=== PATIENT | male | born 1955 | race Hispanic/Latino ===

== ENCOUNTER 2018-06-26 13:15 | Outpatient (CLI) | payer BC, MEDICARE ==
--- NOTE | 2018-06-26 15:46 | HP ---
DATE OF SERVICE: 06/26/2018 HISTORY OF PRESENT ILLNESS: Mr. Nasir Liriano is a very pleasant 62-year-old gentleman who [facility] for evaluation of a wound of the left knee, which the patient states developed after undergoing left below the knee amputation in 07/2017. The patient states that for the wound of his left knee, he has received dressing changes with the assistance of Home Health. The patient states h e has received a trial of Santyl and subsequently a trial of Aquacel Ag. The patient was referred to the [facility] by Dr. Montero on 06/13/2018. PAST MEDICAL HISTORY: 1. Hypertension. 2. Diabetes mellitus. 3. Coronary artery disease. 4. Ischemic cardiomyopathy. 5. Anemia. PAST SURGICAL HISTORY: 1. Coronary artery bypass grafting x5. 2. AICD placement in 12/2011. 3. Left xcilv-xpf-npuy amputation in 07/2017. MEDICATIONS: The patient does not have a list of his medications with him today. ALLERGIES: Onions, pineapples. SOCIAL HISTORY: Negative for tobacco or ETOH use. FAMILY HISTORY: Significant for diabetes mellitus. The patient states that his mother, father and f our sisters were all diagnosed with diabetes mellitus. Family history is also significant for maldonado ry artery disease. The patient states that his father was diagnosed with coronary artery disease. PHYSICAL EXAMINATION: VITAL SIGNS: Temperature 97.7, pulse 105, respirations 18, blood pressure 99/58. Accu-Chek 136. GENERAL: A 62-year-old gentleman sitting on wheelchair in examination room in no acute distress. HEENT: Normocephalic, atraumatic. NECK: No nuchal rigidity. CHEST: Clear to auscultation. CARDIOVASCULAR: Regular rate and rhythm. ABDOMEN: Soft. EXTREMITIES: A wound of the left knee is present only two areas within the wound margins remain unhe aled. Cultures of one open area were obtained with a culturette and sent for aerobic and anaerobic s tudies. The other open area is associated with hypergranulation which was treated with silver nitrat e. No purulent drainage is associated with either open area. No cellulitis of the left knee is pres ent. No maceration of the skin of the left knee is present. No significant edema of the left knee i s appreciated on exam today. ASSESSMENT AND PLAN: 1. Left knee wound as described above. As stated above, only 2 open areas within the wound margins are noted on examination today. Dressing changes of Xeroform gauze and bordered gauze will be initia ruben today. These dressing changes are to be performed 3 times per week after cleansing and irrigatio n with the assistance of Home Health. I will see Mr. Liriano again in two weeks. No antibiotics will be prescribed today based upon the appearance of the wound. The patient and his understand and are in agreement with the preceding treatment plan. 2. Diabetes mellitus. The patient's Accu-Chek in clinic today is 136. The patient has been told th at for optimal wound healing, his blood glucoses should remain below 150. 3. Hypertension. 4. Coronary artery disease. 5. Ischemic cardiomyopathy. 6. Anemia.
== END 2018-06-26 13:16 | disposition home or self-care (01) ==
LOC: WCC 13:15
PROVIDERS: ATTEND Family Medicine
DX: T81.89XD Other complications of procedures, not elsewhere classified, subsequent encounter (principal); E11.9 Type 2 diabetes mellitus without complications; I10 Essential (primary) hypertension; I25.10 Atherosclerotic heart disease of native coronary artery without angina pectoris; I25.5 Ischemic cardiomyopathy; D64.9 Anemia, unspecified
CPT/HCPCS: 17250; 87070; 87205; 97602; 99203; G0463